=== PATIENT | female | born 1955 | race Caucasian/White ===

== ENCOUNTER → 2016-02-29 | Outpatient (CLI) | payer BC ==
--- NOTE | 2016-02-29 20:59 | CT ---
EXAMINATION TYPE: CT soft tissue neck w con DATE OF EXAM: 02/29/2016 7:46 PM COMPARISON: NONE HISTORY: Feeling of choking x [address] DLP: 390.40 mGycm Automated exposure control for dose reduction was used. CONTRAST: CT scan of the neck is performed following with IV Contrast, patient injected with 100 mL of Omnipaqu e 300. Axial images are obtained, coronal and sagittal reformatted images are reviewed. FINDINGS: Airway: No gross abnormality seen. Nasopharynx, oropharynx, hypopharynx, larynx: No focal findings. Parotid/submandibular glands: No gross abnormality seen. Carotid/Vascular Structures: No significant findings. Lymph node stations: No adenopathy. Osseous Structures: Negative. IMPRESSION: NO ACUTE PROCESS; NO FOCAL FINDINGS.
== END | disposition home or self-care (01) ==
LOC: RADCTMAIN 19:14
PROVIDERS: ATTEND Family Medicine
DX: R06.00 Dyspnea, unspecified (principal); R06.02 Shortness of breath; R47.02 Dysphasia; Z85.72 Personal history of non-Hodgkin lymphomas
CPT/HCPCS: 70491; Q9967

== ENCOUNTER → 2016-03-21 | Outpatient (CLI) | payer BC ==
[2016-03-21 12:53] LABS: CH 28.6; CHCM 33.2; HCT 44.2 % (34.0-46.0); HDW 3.24; HGB 14.5 gm/dL (11.4-16.0); MCH 28.3 pg (25.0-35.0); MCHC 32.8 g/dL (31.0-37.0); MCV 86.4 fL (80.0-100.0); RBC 5.12 m/uL (3.80-5.40); RDW 12.9 % (11.5-15.5); WBC 4.3 k/uL (3.8-10.6)
[2016-03-21 13:10] LABS: ALT 29 U/L (9-52); AST 16 U/L (14-36); Alkaline Phosphatase 114 U/L (38-126); Anion Gap 13 mmol/L; Blood Urea Nitrogen 16 mg/dL (7-17); Calcium 9.5 mg/dL (8.4-10.2); Carbon Dioxide 29 mmol/L (22-30); Chloride 101 mmol/L (98-107); Glucose 128 mg/dL (74-99); Non-African American GFR(MDRD) >60 (>60 ml/min/1.73 sqM); Sodium 143 mmol/L (137-145); Total Bilirubin 1.3 mg/dL (0.2-1.3); Total Protein 6.9 g/dL (6.3-8.2)
== END | disposition home or self-care (01) ==
LOC: LABWHC1 12:32
PROVIDERS: ATTEND Internal Medicine Interventional Cardiology
DX: I42.0 Dilated cardiomyopathy (principal)
CPT/HCPCS: 36415; 80053; 83880; 85027

== ENCOUNTER 2016-03-28 05:45 | Day surgery (SDC) | payer BC ==
[2016-03-28] MEDS ORDERED: ATORVASTATIN 80 MG TAB PO STA (05:52)
[2016-03-28] MEDS ORDERED: ASPIRIN 325 MG TAB PO STA (05:52)
[2016-03-28] MEDS ORDERED: SODIUM CHLORIDE 0.9% 1,000 ML in EMPTY BAG 1 BAG IV ONE (05:52)
[2016-03-28] MEDS ORDERED: ALPRAZolam 0.25 MG TAB PO PRN (05:52)
[2016-03-28] MEDS ORDERED: ALPRAZolam 0.5 MG TAB PO PRN (05:52)
[2016-03-28 06:36] VITALS: TEMP 98.2
[2016-03-28] MEDS ORDERED: fentaNYL (PF) 50 MCG/ML 2 ML AMP ONE (06:52)
[2016-03-28] MEDS ORDERED: MIDAZOLAM 2 MG/2 ML VIAL ONE (06:52)
[2016-03-28] MEDS ORDERED: IV FLUID CONTINUATION 1,000 ML IV ONE (07:00)
[2016-03-28] MEDS ORDERED: MIDAZOLAM 2 MG/2 ML VIAL IV ONE (07:08)
[2016-03-28] MEDS ORDERED: fentaNYL (PF) 50 MCG/ML 2 ML AMP IV ONE (07:08)
[2016-03-28] MEDS ORDERED: LIDOCAINE 2% INJ 20 MG/ML (20 ML MDV) ONE (07:12)
[2016-03-28] MEDS ORDERED: diphenhydrAMINE 50 MG/ML 1 ML VIAL ONE (07:13)
[2016-03-28] MEDS ORDERED: VERAPAMIL 2.5 MG/ML 2 ML AMP ONE (07:33)
[2016-03-28] MEDS ORDERED: SODIUM CHLORIDE 0.9% (PF) 10 ML VIAL ONE (07:33)
[2016-03-28] MEDS ORDERED: diphenhydrAMINE 50 MG/ML 1 ML VIAL IVP ONE (07:37)
[2016-03-28] MEDS ORDERED: LIDOCAINE 2% INJ 20 MG/ML SQ ONE (07:45)
[2016-03-28] MEDS ORDERED: HEPARIN SODIUM 1,000 UNIT/ML VIAL ONE (07:46)
--- NOTE | 2016-03-28 07:46 | ECHOT ---
DATE OF SERVICE: CLINICAL INFORMATION: INDICATION: Evaluation of left ventricle. PROCEDURE: After the explaining the procedure to the patient, its risks and complications. The blood pressure, heart rate, O2 saturation was monitored. The throat was sprayed with Cetacaine. She received 2 mg of intravenous Versed and 50 mcg intravenous fentanyl. The probe was introduced into esophagus without difficulty. Images were obtained. Following that, the probe was removed. There was no immediate complication. FINDINGS: Left atrial size is dilated, left atrial appendage is normal. Left ventricular size is dilated. The overall ventricular systolic function is a severely impaired. There is global hypokinesis. The estimated ejection fraction is 25%. The aortic valve, mitral valve, tricuspid valve are normal. Descending thoracic aorta appears to be normal. No pericardial effusion was noted. Contrast bubble study revealed no evidence of shunting across the interatrial septum. Pulse wave and color Doppler were obtained and revealed moderate mitral and tricuspid regurgitation. The estimated right ventricular systolic pressure was 50 mmHg consistent with moderate pulmonary hypertension. There was no shunting by color Doppler study. CONCLUSION: 1. Biatrial enlargement to the left ventricle with severe global hypokinesis. 2. Moderate mitral and tricuspid regurgitation. 3. Moderate pulmonary hypertension. 4. No evidence of shunting across the interatrial septum. 5. Those findings are suggestive of nonischemic cardiomyopathy. MTDD
[2016-03-28] MEDS ORDERED: VERAPAMIL SYRINGE (5 MG/10 ML) INTRAARTER ONE (07:47)
[2016-03-28] MEDS ORDERED: HEPARIN SODIUM 1,000 UNIT/ML VIAL IV ONE (07:49)
[2016-03-28] MEDS ORDERED: MIDAZOLAM 2 MG/2 ML VIAL IVP ONE (07:49)
[2016-03-28] MEDS ORDERED: IOHEXOL 350 MG/ML 100 ML BOTTLE INJ ONE (08:03)
[2016-03-28] MEDS ORDERED: RX INFO: IV CONTRAST WAS GIVEN 1 EACH MISC MISCELLANE PRN (08:16)
[2016-03-28 08:26] VITALS: RESP 16
[2016-03-28] MEDS ORDERED: SODIUM CHLORIDE 0.9% 1,000 ML IV SCH (08:30)
[2016-03-28] MEDS ORDERED: FUROSEMIDE 40 MG TAB PO SCH (09:00)
[2016-03-28] MEDS ORDERED: SPIRONOLACTONE 25 MG TAB PO SCH (09:00)
[2016-03-28] MEDS ORDERED: LISINOPRIL 5 MG TAB PO SCH (09:00)
[2016-03-28] MEDS ORDERED: CARVEDILOL 6.25 MG TAB PO SCH (09:00)
[2016-03-28] MEDS ORDERED: POTASSIUM CHLORIDE ER 20 MEQ TAB.ER PO SCH (09:00)
--- NOTE | 2016-03-28 09:20 | CC ---
DATE OF SERVICE: Ms. Georges is a 60-year-old female with a history of hypertension, who recently presented with evidence of severe cardiomyopathy and symptoms of dyspnea on exertion, was found to have severe impairment of left ventricular systolic function. The patient has received erythromycin in the past but to further evaluate the etiology of her symptoms and her presentation, recommendation was made regarding cardiac catheterization. The procedure as well as the risks and complications were discussed with the patient who is in full understanding and agreement. PROCEDURE: Patient was brought to the [facility] in fasting semi state after receiving fentanyl and Benadryl. She was draped and prepped in conventional fashion. Using Xylocaine anesthesia and Seldinger technique, a 6 Panamanian sheath was introduced in right radial artery. Selective right and left coronary angiography was performed using 5 Panamanian 3-1/2 Bend right Sunita catheter. Multiple views of the coronary artery including hemiaxial views were obtained. Following that, a 5 Panamanian tight pigtail catheter was introduced into the left ventricle and a 30 degree ZAMORA view of the left ventricle was obtained. Following that, catheter and sheaths were removed. Hemostasis was obtained with deployment of TR band. There were no immediate complications. Patient was returned to her room in stable condition. Of note, the patient received 4500 units of intravenous heparin as well as intra-arterial verapamil. FINDINGS: LEFT MAIN: This is a short-sized vessel trifurcating into the left circumflex, left anterior descending artery and ramus intermedius. The left main coronary artery has no evidence of high-grade stenosis. LEFT ANTERIOR DESCENDING ARTERY: This is a large-size vessel reaching toward the apex with a wraparound apex segment. There is no significant diagonal branch. Left anterior descending artery has no evidence of high-grade stenosis. RAMUS INTERMEDIUS: This is a large-size vessel reaching toward the apical lateral wall and it has no evidence of high-grade stenosis. LEFT CIRCUMFLEX: This is a large nondominant vessel, giving rise to a large obtuse marginal branch. The left circumflex as well as its branches have no evidence of obstructive process. RIGHT CORONARY ARTERY: This is a large dominant vessel, bifurcating into PDA and posterolateral segment and branches. The right coronary artery as well as its branches have no evidence of obstructive lung disease. LEFT VENTRICULOGRAM: Left ventriculogram was performed in 30 degree ZAMORA view and revealed a dilated left ventricle with severe global hypokinesis, estimated ejection fraction is 20% to 25%. There was a 2+ mitral regurgitation. HEMODYNAMICS: There was no gradient across the aortic valve. The left ventricular end-diastolic pressure was 20 to 24 mmHg. CONCLUSION: 1. Normal coronary artery. 2. Severely impaired left ventricular systolic function. 3. 2+ mitral regurgitation. RECOMMENDATION: I have discussed with the patient and her family the findings. The results of her testing are consistent with nonischemic cardiomyopathy, most likely related to chemotherapy and in view of that, I recommend to maximize medical therapy and depending on her progress, further recommendation will be made.
--- NOTE | 2016-03-28 09:25 | LTR ---
March 28, 2016 RE: José Manuel Alona Aline Dear Dr. Matute; I had the pleasure to perform cardiac catheterization on Mrs. Georges at [facility] on March 28, 2016 and a full copy of the procedure note will be forwarded to you. In brief, she was found to have no evidence of obstructive coronary artery disease with severely impaired left ventricular systolic function consistent with nonischemic cardiomyopathy most likely related to the Adriamycin that she received during her chemotherapy course. At this time, I will maximize her medical therapy and depending on her progress, further recommendation will be made. Thank you again for allowing me to participate in this patient's care. Please feel free to call for any questions. Sincerely yours, ANDRY WHATLEY MD
[2016-03-28 09:36] VITALS: PULSE 68
[2016-03-28 13:00] VITALS: BP 106/68
== END 2016-03-28 13:30 | disposition home or self-care (01) ==
LOC: CATHCVL 05:45
PROVIDERS: ATTEND Internal Medicine Interventional Cardiology
DX: I51.7 Cardiomegaly (principal); I08.1 Rheumatic disorders of both mitral and tricuspid valves; I27.2 Other secondary pulmonary hypertension; I51.9 Heart disease, unspecified; Z85.72 Personal history of non-Hodgkin lymphomas; I10 Essential (primary) hypertension; Z79.899 Other long term (current) drug therapy
CPT/HCPCS: 99156 ×2; 93312; 93320; 93325; 93458; 84132; C1769 ×3; C1894 ×3; J2001; J2250; J1200; Q9967; J3010; J1644

== ENCOUNTER → 2016-04-02 | Outpatient (CLI) | payer BC ==
[2016-04-02 11:15] LABS: Anion Gap 11 mmol/L; Blood Urea Nitrogen 17 mg/dL (7-17); Carbon Dioxide 26 mmol/L (22-30); Chloride 104 mmol/L (98-107); Non-African American GFR(MDRD) >60 (>60 ml/min/1.73 sqM); Potassium 4.1 mmol/L (3.5-5.1); Sodium 141 mmol/L (137-145)
== END | disposition home or self-care (01) ==
LOC: LABWHC1 10:02
PROVIDERS: ATTEND Nurse Practitioner Adult Health
DX: E87.6 Hypokalemia (principal)
CPT/HCPCS: 36415; 80051; 82565; 84520

== ENCOUNTER → 2016-04-19 | Outpatient (CLI) | payer BC ==
[2016-04-19 10:43] LABS: Anion Gap 8 mmol/L; Blood Urea Nitrogen 12 mg/dL (7-17); Carbon Dioxide 27 mmol/L (22-30); Chloride 105 mmol/L (98-107); Non-African American GFR(MDRD) >60 (>60 ml/min/1.73 sqM); Potassium 4.6 mmol/L (3.5-5.1); Sodium 140 mmol/L (137-145)
== END | disposition home or self-care (01) ==
LOC: LABWHC1 09:49
PROVIDERS: ATTEND Internal Medicine Interventional Cardiology
DX: I10 Essential (primary) hypertension (principal)
CPT/HCPCS: 36415; 80051; 82565; 84520

== ENCOUNTER → 2016-07-20 | Outpatient (CLI) | payer BC ==
--- NOTE | 2016-07-22 10:47 | PE ---
Nuclear medicine PET/CT HISTORY: Lymphoma, C 83.39 Patient received 14.5 mCi F-18 FDG intravenously. Delayed scanning was performed from the skull base to the mid thighs. Localization and attenuation correction CT scan was performed Correlation CT neck 02/29/2016 and prior nuclear medicine PET/CT 11/11/2015 Neck and chest: Some probable physiologic uptake noted about the level of the torus tubarius on the r ight and probable neck musculature. No suspicious hypermetabolic uptake. No evident adenopathy. There is no evident lung mass. No mediastinal, axillary, or hilar adenopathy. Abdomen pelvis: No retroperitoneal adenopathy. No significant interval change. Physiologic bowel acti vity noted. No suspicious hypermetabolic uptake. Osseous structures unremarkable IMPRESSION: Recurrence is not evident.
== END | disposition home or self-care (01) ==
LOC: RADPETMAIN 08:25
PROVIDERS: ATTEND Internal Medicine Hematology & Oncology
DX: C85.90 Non-Hodgkin lymphoma, unspecified, unspecified site (principal)
CPT/HCPCS: 78815; A9552

== ENCOUNTER → 2016-10-23 | Outpatient (CLI) | payer BC ==
[2016-10-23 12:14] LABS: ALT 22 U/L (9-52); AST 11 U/L (14-36); Alkaline Phosphatase 107 U/L (38-126); Anion Gap 10 mmol/L; Blood Urea Nitrogen 18 mg/dL (7-17); Calcium 9.5 mg/dL (8.4-10.2); Carbon Dioxide 27 mmol/L (22-30); Chloride 105 mmol/L (98-107); Glucose 104 mg/dL (74-99); Non-African American GFR(MDRD) >60 (>60 ml/min/1.73 sqM); Potassium 4.3 mmol/L (3.5-5.1); Sodium 142 mmol/L (137-145); Total Bilirubin 0.8 mg/dL (0.2-1.3); Total Protein 6.9 g/dL (6.3-8.2)
== END | disposition home or self-care (01) ==
LOC: LABWHC1 11:19
PROVIDERS: ATTEND Internal Medicine Interventional Cardiology
DX: I42.0 Dilated cardiomyopathy (principal)
CPT/HCPCS: 36415; 80053

== ENCOUNTER → 2017-05-15 | Outpatient (CLI) | payer BC ==
--- NOTE | 2017-05-16 08:19 | MM ---
Reason for exam: screening (asymptomatic). Last mammogram was performed 1 year and 11 months ago. History: Patient is postmenopausal and has history of other cancer at age 59. Took hormonal contraceptives for 10 years beginning at age 24. Physical Findings: A clinical breast exam by your physician is recommended on an annual basis and results should be correlated with mammographic findings. MG Screening Mammo w CAD Bilateral CC and MLO view(s) were taken. Prior study comparison: June 13, 2015, mammogram, performed at [facility]. June 08, 2015, mammogram, performed at [facility]. The breast tissue is almost entirely fat. There is no discrete abnormality. No significant changes when compared with prior studies. ASSESSMENT: Negative, BI-RAD 1 RECOMMENDATION: Routine screening mammogram of both breasts in 1 year.
== END | disposition home or self-care (01) ==
LOC: RADMAMWWP 16:13
PROVIDERS: ATTEND Family Medicine
DX: Z12.31 Encounter for screening mammogram for malignant neoplasm of breast (principal)
CPT/HCPCS: 77067

== ENCOUNTER → 2018-09-14 | Outpatient (CLI) | payer BC ==
--- NOTE | 2018-09-14 15:44 | XR ---
EXAMINATION TYPE: XR chest 2V DATE OF EXAM: 09/14/2018 COMPARISON: Prior chest x-ray 08/28/2010 HISTORY: Z 85.72, non-Hodgkin's lymphoma TECHNIQUE: Frontal and lateral views of the chest are obtained. FINDINGS: There is no focal air space opacity, pleural effusion, or pneumothorax seen. Strand-like d ensities at the lower lobes likely reflect scarring. The cardiac silhouette size is within normal li mits. The osseous structures are intact. IMPRESSION: No acute cardiopulmonary process.
== END | disposition home or self-care (01) ==
LOC: RADXRMAIN 15:04
PROVIDERS: ATTEND Family Medicine
DX: Z08 Encounter for follow-up examination after completed treatment for malignant neoplasm (principal); Z85.72 Personal history of non-Hodgkin lymphomas
CPT/HCPCS: 71046

== ENCOUNTER → 2018-11-25 | Outpatient (CLI) | payer BC ==
--- NOTE | 2018-11-27 10:49 | MM ---
Reason for exam: screening (asymptomatic). Last mammogram was performed 1 year and 6 months ago. History: Patient is postmenopausal and has history of other cancer at age 59. Took hormonal contraceptives for 10 years beginning at age 24. Physical Findings: A clinical breast exam by your physician is recommended on an annual basis and results should be correlated with mammographic findings. MG Screening Mammo w CAD Bilateral CC and MLO view(s) were taken. Prior study comparison: May 15, 2017, bilateral MG screening mammo w CAD. June 08, 2015, mammogram, performed at [facility]. There are scattered fibroglandular densities. There is chronic nodularity bilaterally. No significant changes when compared with prior studies. ASSESSMENT: Benign, BI-RAD 2 RECOMMENDATION: Routine screening mammogram of both breasts in 1 year.
== END | disposition home or self-care (01) ==
LOC: RADMAMWWP 12:31
PROVIDERS: ATTEND Family Medicine
DX: Z12.31 Encounter for screening mammogram for malignant neoplasm of breast (principal)
CPT/HCPCS: 77067

== ENCOUNTER → 2019-12-03 | Outpatient (CLI) | payer MEDICARE ==
[2019-12-04 02:08] LABS: AST 11 U/L (13-35); African American GFR (CKD) 77.8 (60.0-200.0); Albumin/Globulin Ratio 1.68 (1.60-3.17); Alkaline Phosphatase 132 U/L (41-126); BUN/Creat Ratio 13.33 Ratio (12.00-20.00); Calcium 9.5 mg/dL (8.7-10.3); Carbon Dioxide 25.6 mmol/L (21.6-31.8); Chloride 104 mmol/L (96-109); Globulin 2.5 g/dL (1.6-3.3); Glucose 76 mg/dL (70-110); Non-African American GFR(CKD) 67.1 (60.0-200.0); Potassium 4.1 mmol/L (3.5-5.5); Sodium 142 mmol/L (135-145); Total Bilirubin 1.5 mg/dL (0.2-1.2); Total Protein 6.7 g/dL (6.2-8.2)
[2019-12-04 02:39] LABS: ALT <8 U/L (8-44)
== END | disposition home or self-care (01) ==
LOC: LABWHC1 16:15
PROVIDERS: ATTEND Internal Medicine Interventional Cardiology
DX: I42.8 Other cardiomyopathies (principal)
CPT/HCPCS: 36415; 80053

== ENCOUNTER → 2022-03-19 | Outpatient (CLI) | payer MEDICARE ==
[2022-03-19 23:11] LABS: African American GFR (CKD) 63.6 (60.0-200.0); Albumin 4.4 g/dL (3.8-4.9); Albumin/Globulin Ratio 1.52 (1.60-3.17); Anion Gap 12.7 mmol/L (10.00-18.00); BUN/Creat Ratio 16.86 Ratio (12.00-20.00); Blood Urea Nitrogen 17.7 mg/dL (9.0-27.0); Calcium 9.9 mg/dL (8.7-10.3); Carbon Dioxide 24.2 mmol/L (20.0-27.5); Globulin 2.9 g/dL (1.6-3.3); Non-African American GFR(CKD) 54.9 (60.0-200.0); Potassium 4.1 mmol/L (3.5-5.5); Total Bilirubin 1.8 mg/dL (0.30-1.20); Total Protein 7.4 g/dL (6.2-8.2)
== END | disposition home or self-care (01) ==
LOC: LABWHC1 16:17
PROVIDERS: ATTEND Internal Medicine Interventional Cardiology
DX: I42.8 Other cardiomyopathies (principal)
CPT/HCPCS: 36415; 80053

== ENCOUNTER → 2022-05-22 | Outpatient (CLI) | payer MEDICARE ==
--- NOTE | 2022-05-23 18:31 | MM ---
Reason for Exam: Screening (asymptomatic). Last mammogram was performed 3 year(s) and 6 month(s) ago. Patient History: Menarche at age 12. Left ovary removed at age 49. Right ovary removed at age 49. Hysterectomy at age 49. Postmenopausal. Other cancer, age 59. Previous chemotherapy. Hormonal Contraceptives for 10 years from age 24 until age 34. Risk Values: Shanel 5 year model risk: 1.2%. NCI Lifetime model risk: 4.0%. Prior Study Comparison: 06/08/2015 Screening Mammogram, [facility]. 06/13/2015 Screening Mammogram, [facility]. 05/15/2017 Bilateral Screening Mammogram, [facility]. 11/25/2018 Bilateral Screening Mammogram, [facility]. Tissue Density: There are scattered fibroglandular densities. Findings: Analyzed By CAD. Chronic bilateral nodularity. There is no suspicious group of microcalcifications or new suspicious mass in either breast. Overall Assessment: Benign, BI-RAD 2 Management: Screening Mammogram of both breasts in 1 year. 1. Patient should continue monthly self breast exams. 2. A clinical breast exam by your physician is recommended on an annual basis. 3. This exam should not preclude additional follow-up of suspicious palpable abnormalities. Electronically signed and approved by: Alejandra No M.D. Radiologist
== END | disposition home or self-care (01) ==
LOC: RADMAMWWP 10:55
PROVIDERS: ATTEND Internal Medicine Hematology & Oncology
DX: Z12.31 Encounter for screening mammogram for malignant neoplasm of breast (principal); I42.7 Cardiomyopathy due to drug and external agent; C83.39 Diffuse large B-cell lymphoma, extranodal and solid organ sites; J45.21 Mild intermittent asthma with (acute) exacerbation; F06.4 Anxiety disorder due to known physiological condition; Z78.0 Asymptomatic menopausal state
CPT/HCPCS: 77063; 77067

== ENCOUNTER 2022-08-16 08:56 | Day surgery (SDC) | payer MEDICARE ==
[2022-08-14 09:33] VITALS: BMI 28.1
[~2022-08-16 08:56] MED LIST: LACTATED RINGERS 1,000 ML IV SCH
[2022-08-16 09:24] VITALS: TEMP 98.2
[2022-08-16] MEDS ORDERED: PROPOFOL 10 MG/ML 20 ML VIAL IV ONE (10:05)
--- NOTE | 2022-08-16 10:35 | P.PCN ---
Date of Procedure: 08/16/22 Procedure(s) Performed: BRIEF HISTORY: Patient is a 67-year-old pleasant white female scheduled for an elective colonoscopy as a part of screening for colon cancer. PROCEDURE PERFORMED: Colonoscopy with snare polypectomy. PREOPERATIVE DIAGNOSIS: Screening for colon cancer. IV sedation per Anesthesia. PROCEDURE: After informed consent was obtained, the patient, was brought into the endoscopy unit. IV sedation was administered by Anesthesia under continuous monitoring. Digital rectal examination was normal. Initially the Olympus CF-160 flexible video colonoscope was then inserted in the rectum, gradually advanced into the cecum without any difficulty. Careful examination was performed as the scope was gradually being withdrawn. Ileocecal valve and the appendiceal orifice were visualized and appeared normal. Prep was excellent. Mucosa of the cecum, ascending to 8 mm sessile polyp that was removed by snare polypectomy. Rest of the ascending colon, transverse colon, descending colon, sigmoid colon, and rectum appeared normal. Retroflexion was performed in the rectum and no lesions were seen. The patient tolerated the procedure well. IMPRESSION: 7-8 mm cecal polyp status post polypectomy Rest of the colon appeared normal RECOMMENDATIONS: Findings of this examination were discussed with the patient as well as her family. She was advised to follow with the biopsy results. If the biopsy result adenoma she can have a repeat colonoscopy in 5 years..
[2022-08-16 10:45] VITALS: RESP 16
[2022-08-16 11:13] VITALS: BP 98/60; PULSE 61
== END 2022-08-16 11:17 | disposition home or self-care (01) ==
LOC: ORWHC2ENDO 08:56
PROVIDERS: ATTEND Internal Medicine Gastroenterology
DX: Z12.11 Encounter for screening for malignant neoplasm of colon (principal); D12.0 Benign neoplasm of cecum; I10 Essential (primary) hypertension; I42.9 Cardiomyopathy, unspecified; Z85.72 Personal history of non-Hodgkin lymphomas; Z92.21 Personal history of antineoplastic chemotherapy; Z79.899 Other long term (current) drug therapy
CPT/HCPCS: 45385; J2704; 88305

== ENCOUNTER → 2023-07-02 | Outpatient (CLI) | payer MEDICARE ==
[2023-07-02 19:27] LABS: ALT 5 U/L (8-44); AST 11 U/L (13-35); Albumin 4.4 g/dL (3.8-4.9); Albumin/Globulin Ratio 1.57 Ratio (1.60-3.17); Alkaline Phosphatase 143 U/L (41-126); BUN/Creat Ratio 14.56 Ratio (12.00-20.00); Blood Urea Nitrogen 13.1 mg/dL (9.0-27.0); Calcium 9.6 mg/dL (8.7-10.3); Carbon Dioxide 25.9 mmol/L (21.6-31.8); Chloride 101 mmol/L (96-109); Globulin 2.8 g/dL (1.6-3.3); Glucose 92 mg/dL (70-110); Potassium 3.9 mmol/L (3.5-5.5); Sodium 139 mmol/L (135-145); Total Bilirubin 1.1 mg/dL (0.3-1.2); Total Protein 7.2 g/dL (6.2-8.2)
== END | disposition home or self-care (01) ==
LOC: LABWHC1 14:44
PROVIDERS: ATTEND Internal Medicine Interventional Cardiology
DX: I10 Essential (primary) hypertension (principal)
CPT/HCPCS: 36415; 80053

== ENCOUNTER → 2024-01-02 | Outpatient (CLI) | payer MEDICARE ==
--- NOTE | 2024-01-05 11:32 | MM ---
Reason for Exam: Screening (asymptomatic). Last mammogram was performed 1 year(s) and 7 month(s) ago. Patient History: Menarche at age 12. Left ovary removed at age 49. Right ovary removed at age 49. Hysterectomy at age 49. Postmenopausal. Other cancer, age 59. Previous chemotherapy. Hormonal Contraceptives for 10 years from age 24 until age 34. Risk Values: Shanel 5 year model risk: 1.2%. NCI Lifetime model risk: 3.9%. Prior Study Comparison: 05/15/2017 Bilateral Screening Mammogram, [facility]. 11/25/2018 Bilateral Screening Mammogram, [facility]. 05/22/2022 Bilateral MG 3D screening mammo w/cad, [facility]. Tissue Density: There are scattered areas of fibroglandular density. Findings: Analyzed By CAD. There is no suspicious group of microcalcifications or new suspicious mass in either breast. Overall Assessment: Benign, BI-RAD 2 Management: Screening Mammogram of both breasts in 1 year. . Patient should continue monthly self-breast exams. A clinical breast exam by your physician is recommended on an annual basis. This exam should not preclude additional follow-up of suspicious palpable abnormalities. Note on Shanel scores and lifetime risk: 1. A Shanel score greater than 3% is considered moderate risk. If this is the case, consider specialist referral to assess eligibility for a risk reducing agent. 2. If overall lifetime risk for the development of breast cancer is 20% or higher, the patient may qualify for future screening with alternating mammogram and breast MRI. [facility], , 01/05/2024 11:30 AM. Electronically signed and approved by: Leonardo Dixon M.D. Radiologis
== END | disposition home or self-care (01) ==
LOC: RADMAMWWP 14:25
PROVIDERS: ATTEND Family Medicine
DX: Z12.31 Encounter for screening mammogram for malignant neoplasm of breast (principal); Z78.0 Asymptomatic menopausal state; R92.323 Mammographic fibroglandular density, bilateral breasts
CPT/HCPCS: 77063; 77067

== ENCOUNTER → 2024-06-22 | Outpatient (CLI) | payer MEDICARE ==
[2024-06-22 20:33] LABS: BUN/Creat Ratio 18.62 Ratio (12.00-20.00); Blood Urea Nitrogen 14.9 mg/dL (9.0-27.0); Calcium 9.4 mg/dL (8.7-10.3); Carbon Dioxide 23.2 mmol/L (21.6-31.8); Chloride 103 mmol/L (96-109); Glucose 92 mg/dL (70-110); Potassium 3.7 mmol/L (3.5-5.5); Sodium 140 mmol/L (135-145)
[2024-06-23 00:18] LABS: NT-Pro-B-Type Natriuretic Pept 270 pg/mL (0-125)
== END | disposition home or self-care (01) ==
LOC: LABWHC1 15:19
PROVIDERS: ATTEND Internal Medicine Interventional Cardiology
DX: I42.8 Other cardiomyopathies (principal)
CPT/HCPCS: 36415; 80048; 83880